=== PATIENT | female | born 1955 | race Caucasian/White ===

== ENCOUNTER 2019-04-26 16:04 | Emergency (ER) | payer BC ==
[2019-04-26] MEDS ORDERED: BUPROPION HCL150 M1 PO (17:40)
[2019-04-26] MEDS ORDERED: OMEPRAZOLE DR20 MG PO (17:41)
[2019-04-26] MEDS ORDERED: RALOXIFENE HYDR60 MG PO (17:41)
[2019-04-26] MEDS ORDERED: AMLODIPINE BESY10 MG PO (17:41)
[2019-04-26] MEDS ORDERED: MONTELUKAST SOD10 MG PO (17:41)
[2019-04-26] MEDS ORDERED: CYCLOBENZAPR10 MG PO (17:42)
[2019-04-26] MEDS ORDERED: BACTROBAN TOP (18:16)
[2019-04-26 18:20] VITALS: BP 126/87
== END 2019-04-26 18:20 | disposition home or self-care (01) | DRG 607 ==
LOC: ED 16:04
DX: S40.861A Insect bite (nonvenomous) of right upper arm, initial encounter (principal); I10 Essential (primary) hypertension; W57.XXXA Bitten or stung by nonvenomous insect and other nonvenomous arthropods, initial encounter; Y92.832 Beach as the place of occurrence of the external cause